=== PATIENT | female | born 1960 | race African-American/Black ===

== ENCOUNTER 2017-07-12 20:09 | Emergency (ER) | payer MEDICAID ==
[~2017-07-12] VITALS: Ht 167.6 cm; Wt 110.5 kg
[2017-07-12 20:24] VITALS: BP 157/111
[2017-07-12] MEDS ORDERED: QUET25TA PO (20:48)
[2017-07-12] MEDS ORDERED: ACYC200C PO (20:48)
[2017-07-12] MEDS ORDERED: HYDR-305 PO (20:48)
[2017-07-12] MEDS ORDERED: DIPH25 PO (20:48)
== END 2017-07-12 21:51 | disposition left against medical advice (07) ==
LOC: EMS 20:14
DX: S10.91XA Abrasion of unspecified part of neck, initial encounter (principal); S70.219A Abrasion, unspecified hip, initial encounter; F17.210 Nicotine dependence, cigarettes, uncomplicated; Y04.2XXA Assault by strike against or bumped into by another person, initial encounter; Y93.89 Activity, other specified; Y92.89 Other specified places as the place of occurrence of the external cause; Y99.8 Other external cause status